=== PATIENT | female | born 1995 | race Caucasian/White ===

== ENCOUNTER 2018-06-14 18:06 | Emergency (ER) | payer OTHER, SELFPAY ==
[2018-06-14] VITALS (26 sets, daily range): BP systolic 146–171; BP diastolic 89–107; PULSE 97–158; RESP 12–28; TEMP 38.2; O2SAT 98–100
--- NOTE | 2018-06-14 18:29 | NUR.NOTE ---
Nursing Note: Pt. denies being anxious currently, staes she had apretty regular day. Is calm in triage. MD Rodriguez is at the bedside currently. Pt. states this started around 1730. Pt. states she recently drove to [place], about a 20mile drive.
--- NOTE | 2018-06-14 18:38 | ERNE_ITS ---
Discharge Plan Discharge Details Chief Complaint: GenMedical Primary Care Provider: Jimbo Costello ED Provider: Tim Rodriguez Home Meds and New Rx's Prescriptions: No Action epinephrine [EpiPen 2-Dennys] 0.3 MG/0.3 ML auto-injector 0.3 mg IM ONCE Qty: 2 RF: 1 Medical Decision Making 22-year-old female with a history of intermittent palpitations in the past, presents with the abrupt onset of rapid heart rate earlier in the day today. She denies any emotional upset. She will endorse recent prolonged travel in a drive to [place] and back for the holidays. She does not of lower extremity pain or swelling. No recent illness. She arrives with a pulse of 150, blood pressure is somewhat elevated, in no significant distress. IV placed, labs obtained, patient placed on cardiac cath lab manager. Differential diagnosis includes pulmonary embolism, benign tachydysrhythmia, dehydration, anxiety. Labs are reassuring with a negative troponin and d-dimer in the 200s. Nonetheless, there is high clinical suspicion for the possibility of PE, therefore patient referred for CT scan of the chest. Case signed out to Dr. Licea at change of shift pending final diagnostic images Lab Data Lab results reviewed: Yes I reviewed the patient's lab results. Laboratory Results - last 24 hr 06/14/18 06/14/18 06/14/18 18:23 18:23 18:23 WBC 7.02 RBC 4.88 Hgb 14.1 Hct 40.7 MCV 83.4 MCH 28.9 MCHC 34.6 RDW 11.7 Plt Count 249 MPV 11.8 H Immature Gran % 0.1 Neutrophils % 49.6 Lymphocytes % 35.9 Monocytes % 8.7 Eosinophils % 5.3 Basophils % 0.4 Absolute Neutrophils 3.48 Absolute Lymphocytes 2.52 Absolute Monocytes 0.61 Absolute Eosinophils 0.37 Absolute Basophils 0.03 D-Dimer 237 Sodium 140 Potassium 3.3 L Chloride 102 Carbon Dioxide 26.8 Anion Gap 11.2 H BUN 9 Creatinine 0.89 Estimated GFR/1.73 m2 >= 60.00 Glucose 132 H Calcium 9.8 Magnesium 2.0 Total Bilirubin 1.2 H AST 16 ALT 24 Alkaline Phosphatase 68 Troponin I 0.02 Total Protein 8.6 H Albumin 4.2 ECG Data Attestation: I personally reviewed and interpreted this ECG (s) as follows: Interpretation: Sinus tachycardia, QRS is narrow, the rate is 155, LA interval is 112, there is no ST segment elevation Repeat EKG obtained at 1928 hrs. reveals narrow complex sinus tachycardia HPI General Mode of arrival: ambulatory . Date/Time Provider Initiated Documentation: 06/14/18 18:08 . Limitations to Documentation: no limitations . Information obtained by: patient and family . History of Present Illness 22 year old F presents to the emergency department with the chief complaint of Rapid heart, Quality is described as constant, and is localized to the chest. Patient reports no radiation. Patient started experiencing this hour(s) and it has been constant. No relieving factors improve symptom(s), No exacerbating factors reported . Patient notes rash. Patient did receive the following treatments prior to arrival, none HPI Narrative: Abrupt onset of rapid heart rate approximately 2 hours prior. Similar to previous but more prolonged. No chest pain. Did recently travel from [place] in a car. Denies leg pain or swelling. 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 Related Data Home Medications Medication Instructions Recorded Confirmed epinephrine [Epipen 2-Dennys] 0.3 mg IM ONCE #2 pack 10/29/17 06/14/18 Previous Rx's Medication Instructions Recorded epinephrine [Epipen 2-Dennys] 0.3 mg IM ONCE #2 pack 10/29/17 Allergies Allergy/AdvReac Type Severity Reaction Status Date / Time tree nut Allergy Severe Anaphylaxsi Unverified 10/29/17 11:23 s birch Allergy Unknown Unverified 10/29/17 11:23 No Known Drug Allergies Allergy Unverified 10/29/17 11:23 General Stated Complaint: GenMedical HAROON: 3 Review of Systems Review of Systems 6 systems reviewed and otherwise negative [facility] Family History Mother Diabetes Mental disorder Father Essential hypertension Diabetes Hyperlipidemia Sister Asthma Brother Mental disorder Asthma Other Essential hypertension Diabetes Personal history of malignant neoplasm Heart disease Myocardial infarction Stroke Social History Smoking/Tobacco Use Status: Never Exam Narrative Exam Narrative: GEN: awake, alert, oriented 3. Pleasant, well groomed, interactive. HEAD: Normocephalic, atraumatic ENT: Mucous membranes moist, oropharynx unremarkable, External ear exam unremarkable EYES: PERRL, EOMI NECK: Full ROM, no DOTTIE, no menigismus CHEST/RESP: Nontender, clear to auscultation bilateral, no wheeze/rhonchi/rales CARDIOVASCULAR: Tachycardic, regular, no murmur appreciated,no rub alberta. 2+ Rad pulse bilateral ABDOMEN: Soft, nontender, no mass. +Bowel sounds EXT: Full ROM, no edema, no rash Neuro: Grossly normal neurologic exam, conversant, interactive. Psych: Speech fluent, thoughts congruent, affect normal Course Vital Signs Pulse 155 H 06/14/18 18:23 Respiratory Rate 18 06/14/18 18:23 Blood Pressure 168/107 H 06/14/18 18:23 Pulse Oximetry 100 06/14/18 18:23 Pulse 155 H 06/14/18 18:23 Respiratory Rate 18 06/14/18 18:23 Respiratory Effort 06/14/18 18:31 Respiratory Depth Normal 06/14/18 18:31 Respiratory Pattern Normal 06/14/18 18:31 Blood Pressure 168/107 H 06/14/18 18:23 Blood Pressure Position Sitting 06/14/18 18:23 Pulse Oximetry 100 06/14/18 18:23 Pain Level 0 06/14/18 18:23
[2018-06-14] MEDS: Normal Saline 1,000 ML 1000 ML IV (18:39)
--- NOTE | 2018-06-14 18:41 | ED.GENADUL_ITS ---
Discharge Plan Discharge Details Chief Complaint: GenMedical Primary Care Provider: Jimbo Costello ED Provider: Tim Rodriguez Home Meds and New Rx's Prescriptions: No Action epinephrine [EpiPen 2-Dennys] 0.3 MG/0.3 ML auto-injector 0.3 mg IM ONCE Qty: 2 RF: 1 Medical Decision Making 22-year-old female with a history of intermittent palpitations in the past, presents with the abrupt onset of rapid heart rate earlier in the day today. She denies any emotional upset. She will endorse recent prolonged travel in a drive to [place] and back for the holidays. She does not of lower extremity pain or swelling. No recent illness. She arrives with a pulse of 150, blood pressure is somewhat elevated, in no significant distress. IV placed, labs obtained, patient placed on conveyor monitor. Differential diagnosis includes pulmonary embolism, benign tachydysrhythmia, dehydration, anxiety. Labs are reassuring with a negative troponin and d-dimer in the 200s. Nonetheless, there is high clinical suspicion for the possibility of PE, therefore patient referred for CT scan of the chest. Case signed out to Dr. Licea at change of shift pending final diagnostic images Lab Data Lab results reviewed: Yes I reviewed the patient's lab results. Laboratory Results - last 24 hr 06/14/18 06/14/18 06/14/18 18:23 18:23 18:23 WBC 7.02 RBC 4.88 Hgb 14.1 Hct 40.7 MCV 83.4 MCH 28.9 MCHC 34.6 RDW 11.7 Plt Count 249 MPV 11.8 H Immature Gran % 0.1 Neutrophils % 49.6 Lymphocytes % 35.9 Monocytes % 8.7 Eosinophils % 5.3 Basophils % 0.4 Absolute Neutrophils 3.48 Absolute Lymphocytes 2.52 Absolute Monocytes 0.61 Absolute Eosinophils 0.37 Absolute Basophils 0.03 D-Dimer 237 Sodium 140 Potassium 3.3 L Chloride 102 Carbon Dioxide 26.8 Anion Gap 11.2 H BUN 9 Creatinine 0.89 Estimated GFR/1.73 m2 >= 60.00 Glucose 132 H Calcium 9.8 Magnesium 2.0 Total Bilirubin 1.2 H AST 16 ALT 24 Alkaline Phosphatase 68 Troponin I 0.02 Total Protein 8.6 H Albumin 4.2 ECG Data Attestation: I personally reviewed and interpreted this ECG (s) as follows: Interpretation: Sinus tachycardia, QRS is narrow, the rate is 155, RI interval is 112, there is no ST segment elevation Repeat EKG obtained at 1928 hrs. reveals narrow complex sinus tachycardia HPI General Mode of arrival: ambulatory . Date/Time Provider Initiated Documentation: 06/14/18 18:08 . Limitations to Documentation: no limitations . Information obtained by: patient and family . History of Present Illness 22 year old F presents to the emergency department with the chief complaint of Rapid heart, Quality is described as constant, and is localized to the chest. Patient reports no radiation. Patient started experiencing this hour(s) and it has been constant. No relieving factors improve symptom(s), No exacerbating factors reported . Patient notes rash. Patient did receive the following treatments prior to arrival, none HPI Narrative: Abrupt onset of rapid heart rate approximately 2 hours prior. Similar to previous but more prolonged. No chest pain. Did recently travel from [place] in a car. Denies leg pain or swelling. 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 Related Data Home Medications Medication Instructions Recorded Confirmed epinephrine [Epipen 2-Dennys] 0.3 mg IM ONCE #2 pack 10/29/17 06/14/18 Previous Rx's Medication Instructions Recorded epinephrine [Epipen 2-Dennys] 0.3 mg IM ONCE #2 pack 10/29/17 Allergies Allergy/AdvReac Type Severity Reaction Status Date / Time tree nut Allergy Severe Anaphylaxsi Unverified 10/29/17 11:23 s birch Allergy Unknown Unverified 10/29/17 11:23 No Known Drug Allergies Allergy Unverified 10/29/17 11:23 General Stated Complaint: GenMedical HAROON: 3 Review of Systems Review of Systems 6 systems reviewed and otherwise negative PENDING SALE TO [facility] Family History Mother Diabetes Mental disorder Father Essential hypertension Diabetes Hyperlipidemia Sister Asthma Brother Mental disorder Asthma Other Essential hypertension Diabetes Personal history of malignant neoplasm Heart disease Myocardial infarction Stroke Social History Smoking/Tobacco Use Status: Never Exam Narrative Exam Narrative: GEN: awake, alert, oriented 3. Pleasant, well groomed, interactive. HEAD: Normocephalic, atraumatic ENT: Mucous membranes moist, oropharynx unremarkable, External ear exam unremarkable EYES: PERRL, EOMI NECK: Full ROM, no DOTTIE, no menigismus CHEST/RESP: Nontender, clear to auscultation bilateral, no wheeze/rhonchi/rales CARDIOVASCULAR: Tachycardic, regular, no murmur appreciated,no rub alberta. 2+ Rad pulse bilateral ABDOMEN: Soft, nontender, no mass. +Bowel sounds EXT: Full ROM, no edema, no rash Neuro: Grossly normal neurologic exam, conversant, interactive. Psych: Speech fluent, thoughts congruent, affect normal Course Vital Signs Pulse 155 H 06/14/18 18:23 Respiratory Rate 18 06/14/18 18:23 Blood Pressure 168/107 H 06/14/18 18:23 Pulse Oximetry 100 06/14/18 18:23 Pulse 155 H 06/14/18 18:23 Respiratory Rate 18 06/14/18 18:23 Respiratory Effort 06/14/18 18:31 Respiratory Depth Normal 06/14/18 18:31 Respiratory Pattern Normal 06/14/18 18:31 Blood Pressure 168/107 H 06/14/18 18:23 Blood Pressure Position Sitting 06/14/18 18:23 Pulse Oximetry 100 06/14/18 18:23 Pain Level 0 06/14/18 18:23
[2018-06-14 18:47] LABS: Abs Immature Grans 0.01 k/cumm (0.0-0.09); Absolute Basophil Count 0.03 k/cumm (0.0-0.2); Absolute Eosinophil Count 0.37 k/cumm (0.0-0.7); Absolute Lymphocyte Count 2.52 k/cumm (1.2-3.4); Absolute Monocyte Count 0.61 k/cumm (0.11-0.7); Absolute Neutrophil Count 3.48 k/cumm (1.2-6.7); Basophils % 0.4; Eosinophils % 5.3; HCT 40.7 % (36.0-46.0); HGB 14.1 g/dL (12.0-15.5); Immature Grans % 0.1; Lymphocytes % 35.9; Mean Corp. HGB Concentration 34.6 g/dL (32.0-36.0); Mean Corpuscular Hemoglobin 28.9 pg (27.0-33.0); Mean Corpuscular Volume 83.4 fL (80-95); Mean Platelet Volume 11.8 fL (8.0-11.0); Monocytes % 8.7; Neutrophils % 49.6; Platelet Count 249 x1000/uL (130-400); RBC 4.88 m/cumm (4.00-5.20); RBC Distribution Width 11.7 % (11.7-14.6); White Blood Cell Count 7.02 k/cumm (4.4-10.8)
[2018-06-14 19:02] LABS: ALT 24 U/L (12-78); AST 16 U/L (15-37); Albumin 4.2 g/dL (3.4-5.0); Alkaline Phosphatase 68 U/L (46-116); Anion Gap 11.2 mmol/L (3-11); BUN 9 mg/dL (7-18); Bilirubin, Total 1.2 mg/dL (0.2-1.0); CO2 26.8 mmol/L (21.0-32.0); CREATININE 0.89 mg/dL (0.55-1.02); Calcium 9.8 mg/dL (8.5-10.1); Chloride 102 mmol/L (98-107); Glucose 132 mg/dL (70-100); Potassium 3.3 mmol/L (3.5-5.1); Sodium 140 mmol/L (136-145); Total Protein 8.6 g/dL (6.4-8.2); Troponin I 0.02 ng/mL (0.00-0.06)
[2018-06-14 19:18] LABS: D-Dimer 237 ng/mlFEU (<500)
--- NOTE | 2018-06-14 19:26 | DI.CT_ITS ---
SYMPTOM/DIAGNOSIS: TACHYCARDIA, RECENT LONG TRAVEL PE CHEST CT: CT angiography was performed with multi slice acquisition and multi planar and 3D reconstruction. There is no evidence of pulmonary emboli or aortic dissection. The heart size is normal. No pleural or pericardial effusions are seen. The lungs appear clear. The visualized portions of the upper abdomen are unremarkable. IMPRESSION: Negative chest CT. No evidence of pulmonary emboli or other acute abnormality.
[2018-06-14 19:55] LABS: TSH 4.26 uIU/mL (0.358-3.74)
[2018-06-14] MEDS: Omnipaque 350 MG/ML 100 ML BTL IV (20:00)
--- NOTE | 2018-06-14 20:14 | DI.VRAD_ITS ---
EXAM: CT Angiography Chest With Contrast EXAM DATE/TIME: 06/14/2018 7:29 PM CLINICAL HISTORY: 22 years old, female; Signs and symptoms; Other: Tachycardia, recent 20 hr travel TECHNIQUE: Axial computed tomographic angiography images of the chest with intravenous contrast using CT angiography protocol. All CT scans at this facility use at least one of these dose optimization techniques: automated exposure control; mA and/or kV adjustment per patient size (includes targeted exams where dose is matched to clinical indication); or iterative reconstruction. Coronal and sagittal reformatted images were created and reviewed. MIP reconstructed images were created and reviewed. CONTRAST: 100 ml of omnipaque 350 administered intravenously. COMPARISON: No relevant prior studies available. FINDINGS: Pulmonary arteries: Normal. No pulmonary emboli. Aorta: Normal. No aortic aneurysm. No aortic dissection. Lungs: Normal. No consolidation. No masses. Pleural space: Normal. No pneumothorax. No pleural effusion. Heart: Normal. No cardiomegaly. No pericardial effusion. Lymph nodes: Unremarkable. No enlarged lymph nodes. Bones/joints: Unremarkable. No acute fracture. Soft tissues: Unremarkable. IMPRESSION: No pulmonary arterial embolism or other acute abnormality. Dictated and Authenticated by: Kirill Schwarz MD. Ordering:JESUS Dumont MD
--- NOTE | 2018-06-14 20:39 | ED.GENADUL_ITS ---
Discharge Plan Disposition Patient Disposition: HOME Condition: Stable Discharge Details Chief Complaint: GenMedical Clinical Impression: Palpitations Primary Care Provider: Jimbo Costello ED Provider: Geoff Licea Home Meds and New Rx's Prescriptions: No Action epinephrine [EpiPen 2-Dennys] 0.3 MG/0.3 ML auto-injector 0.3 mg IM ONCE Qty: 2 RF: 1 Discharge Instructions Instructions: Palpitations (ED) Additional Instructions: Your lab work and cat scan did not show any concerning findings. We are discharging you with a zio patch to evaluate for arrythmias follow up with a primary care provider in 2-3 weeks IF you have worsening symptoms, difficulty breathing or severe pain return to the emergency department Medical Decision Making Pt was signed over to me pending CTA. In brief has had hx of subaortic stenosis not requiring any surgery. She has had periods in the past where she feels anxious, her herat rate gets elevated and gets a mild erythematous rash on her chest. She is on control and recently drove to [place] and back so Dr. Rodriguez did labs which were benign and also obtained CTA to [facility] for PE and signed over to me pending CTA. CTA is negative and she remains hd stable. HR does go to 110 intermittently when she states she feels anxious. Will send home on zio patch, advised f/u with pcp and return precautions given Differential Diagnosis svt, pe, electrolyte abnormality, anxiety Imaging Data Radiologic Study: Attestation: I personally reviewed and interpreted this imaging study as follows: Imaging: CT Scan Radiologist's impression: no acute findings Lab Data Lab results reviewed: Yes I reviewed the patient's lab results. HPI General Mode of arrival: ambulatory . Date/Time Provider Initiated Documentation: 06/14/18 18:08 . Limitations to Documentation: no limitations . Information obtained by: patient . History of Present Illness 22 year old F presents to the emergency department with the chief complaint of rapid heart rate, described as moderate, with intensity rated at 4. Patient reports no radiation. Patient started experiencing this hour(s) (3) and it has been constant. No relieving factors improve symptom(s), No exacerbating factors reported . Patient did receive the following treatments prior to arrival, none Related Data Home Medications Medication Instructions Recorded Confirmed epinephrine [Epipen 2-Dennys] 0.3 mg IM ONCE #2 pack 10/29/17 06/14/18 Previous Rx's Medication Instructions Recorded epinephrine [Epipen 2-Dennys] 0.3 mg IM ONCE #2 pack 10/29/17 Allergies Allergy/AdvReac Type Severity Reaction Status Date / Time tree nut Allergy Severe Anaphylaxsi Unverified 10/29/17 11:23 s birch Allergy Unknown Unverified 10/29/17 11:23 No Known Drug Allergies Allergy Unverified 10/29/17 11:23 General Stated Complaint: GenMedical HAROON: 3 Review of Systems Review of Systems All systems reviewed & are unremarkable except as noted in HPI and below Constitutional Denies chills, Denies fever(s) and Denies weakness Eyes Denies loss of vision ENT Denies change in voice Cardiovascular Denies dyspnea Respiratory Denies dyspnea Gastrointestinal Denies abdominal pain, Denies nausea and Denies vomiting Genitourinary Denies dysuria Musculoskeletal Denies joint swelling Neurologic Denies loss of vision and Denies weakness Psychiatric Denies depression Endocrine Denies cold intolerance and Denies heat intolerance Allergic/Immunologic Denies urticaria PFSH Family History Mother Diabetes Mental disorder Father Essential hypertension Diabetes Hyperlipidemia Sister Asthma Brother Mental disorder Asthma Other Essential hypertension Diabetes Personal history of malignant neoplasm Heart disease Myocardial infarction Stroke Social History Smoking/Tobacco Use Status: Never Exam Const General: no acute distress Orientation: alert HENMT Head: normal to inspection Ears: external ears normal General nose exam: external nose normal Mouth: moist mucous membranes Eyes General: appearance normal, both eyes and all related structures Neck Neck: normal visual inspection Resp Effort & Inspection: normal respiratory effort and able to speak in complete sentences Cardio Jugular venous pressure: no JVD Rhythm: regular rhythm Skin General skin exam: no rashes or lesions noted Neuro General: alert and oriented x3 Extrem General: normal to inspection Psych Mental Status: mental status grossly normal Course Vital Signs Respiratory Rate 20 06/14/18 18:09 Temperature 38.2 C H 06/14/18 19:54 Temperature Source Oral 06/14/18 19:54 Pulse 100 H 06/14/18 19:01 Pulse 104 H 06/14/18 19:01 Respiratory Rate 17 06/14/18 19:01 Respiratory Effort 01/01/19 18:31 Respiratory Depth Normal 06/14/18 18:31 Respiratory Pattern Normal 06/14/18 18:31 Blood Pressure 146/91 H 06/14/18 19:01 Blood Pressure Mean 104 06/14/18 19:01 Blood Pressure Position Sitting 06/14/18 18:23 Pulse Oximetry 100 06/14/18 19:01 Pain Level 0 06/14/18 18:23 Lab/Test Results Lab/Test Results: Laboratory Tests Range/Units 06/14/18 06/14/18 06/14/18 18:23 18:23 18:23 WBC (4.4-10.8) k/cumm 7.02 RBC (4.00-5.20) m/cumm 4.88 Hgb (12.0-15.5) g/dL 14.1 Hct (36.0-46.0) % 40.7 MCV (80-95) fL 83.4 MCH (27.0-33.0) pg 28.9 MCHC (32.0-36.0) g/dL 34.6 RDW (11.7-14.6) % 11.7 Plt Count (130-400) x1000/uL 249 MPV (8.0-11.0) fL 11.8 H Immature Gran % 0.1 Neutrophils % 49.6 Lymphocytes % 35.9 Monocytes % 8.7 Eosinophils % 5.3 Basophils % 0.4 Absolute Neutrophils (1.2-6.7) k/cumm 3.48 Absolute Lymphocytes (1.2-3.4) k/cumm 2.52 Absolute Monocytes (0.11-0.7) k/cumm 0.61 Absolute Eosinophils (0.0-0.7) k/cumm 0.37 Absolute Basophils (0.0-0.2) k/cumm 0.03 D-Dimer (<500) ng/mlFEU 237 Sodium (136-145) mmol/L 140 Potassium (3.5-5.1) mmol/L 3.3 L Chloride (98-107) mmol/L 102 Carbon Dioxide (21.0-32.0) mmol/L 26.8 Anion Gap (3-11) mmol/L 11.2 H BUN (7-18) mg/dL 9 Creatinine (0.55-1.02) mg/dL 0.89 Estimated GFR/1.73 m2 (mL/min/1.73m2) >= 60.00 Glucose (70-100) mg/dL 132 H Calcium (8.5-10.1) mg/dL 9.8 Magnesium (1.8-2.4) mg/dL 2.0 Total Bilirubin (0.2-1.0) mg/dL 1.2 H AST (15-37) U/L 16 ALT (12-78) U/L 24 Alkaline Phosphatase (46-116) U/L 68 Troponin I (0.00-0.06) ng/mL 0.02 Total Protein (6.4-8.2) g/dL 8.6 H Albumin (3.4-5.0) g/dL 4.2 TSH (0.358-3.74) uIU/mL Range/Units 06/14/18 18:23 WBC (4.4-10.8) k/cumm RBC (4.00-5.20) m/cumm Hgb (12.0-15.5) g/dL Hct (36.0-46.0) % MCV (80-95) fL MCH (27.0-33.0) pg MCHC (32.0-36.0) g/dL RDW (11.7-14.6) % Plt Count (130-400) x1000/uL MPV (8.0-11.0) fL Immature Gran % Neutrophils % Lymphocytes % Monocytes % Eosinophils % Basophils % Absolute Neutrophils (1.2-6.7) k/cumm Absolute Lymphocytes (1.2-3.4) k/cumm Absolute Monocytes (0.11-0.7) k/cumm Absolute Eosinophils (0.0-0.7) k/cumm Absolute Basophils (0.0-0.2) k/cumm D-Dimer (<500) ng/mlFEU Sodium (136-145) mmol/L Potassium (3.5-5.1) mmol/L Chloride (98-107) mmol/L Carbon Dioxide (21.0-32.0) mmol/L Anion Gap (3-11) mmol/L BUN (7-18) mg/dL Creatinine (0.55-1.02) mg/dL Estimated GFR/1.73 m2 (mL/min/1.73m2) Glucose (70-100) mg/dL Calcium (8.5-10.1) mg/dL Magnesium (1.8-2.4) mg/dL Total Bilirubin (0.2-1.0) mg/dL AST (15-37) U/L ALT (12-78) U/L Alkaline Phosphatase (46-116) U/L Troponin I (0.00-0.06) ng/mL Total Protein (6.4-8.2) g/dL Albumin (3.4-5.0) g/dL TSH (0.358-3.74) uIU/mL 4.26 H Sign Out Sign Out Data: Sign Out Comment: Followup CT pe Last updated by Tim Rodriguez MD at 06/14/18 19:52
--- NOTE | 2018-06-15 09:10 | ED.GENADUL_ITS ---
Discharge Plan Disposition Patient Disposition: HOME Condition: Stable Discharge Details Chief Complaint: GenMedical Clinical Impression: Palpitations Primary Care Provider: Jimbo Costello ED Provider: Geoff Licea Home Meds and New Rx's Prescriptions: No Action epinephrine [EpiPen 2-Dennys] 0.3 MG/0.3 ML auto-injector 0.3 mg IM ONCE Qty: 2 RF: 1 Discharge Instructions Instructions: Palpitations (ED) Additional Instructions: Your lab work and cat scan did not show any concerning findings. We are discharging you with a zio patch to evaluate for arrythmias follow up with a primary care provider in 2-3 weeks IF you have worsening symptoms, difficulty breathing or severe pain return to the emergency department Discharge Data Discharge Date/Time-TO BE ENTERED AT DEPARTURE: 06/14/18 21:52 Medical Decision Making Due to air of medical record, please see scanned note from this visit date as well as Dr. Licea's follow-up note from same visit HPI General Mode of arrival: ambulatory . Date/Time Provider Initiated Documentation: 06/14/18 18:08 . Limitations to Documentation: no limitations . Information obtained by: patient . History of Present Illness with intensity rated at 4. No relieving factors improve symptom(s), No exacerbating factors reported . Patient did receive the following treatments prior to arrival, none Related Data Home Medications Medication Instructions Recorded Confirmed epinephrine [Epipen 2-Dennys] 0.3 mg IM ONCE #2 pack 10/29/17 06/14/18 Previous Rx's Medication Instructions Recorded epinephrine [Epipen 2-Dennys] 0.3 mg IM ONCE #2 pack 10/29/17 Allergies Allergy/AdvReac Type Severity Reaction Status Date / Time tree nut Allergy Severe Anaphylaxsi Unverified 10/29/17 11:23 s birch Allergy Unknown Unverified 10/29/17 11:23 No Known Drug Allergies Allergy Unverified 10/29/17 11:23 General Stated Complaint: GenMedical HAROON: 3 PFSH Family History Mother Diabetes Mental disorder Father Essential hypertension Diabetes Hyperlipidemia Sister Asthma Brother Mental disorder Asthma Other Essential hypertension Diabetes Personal history of malignant neoplasm Heart disease Myocardial infarction Stroke Social History Smoking/Tobacco Use Status: Never Course Vital Signs Respiratory Rate 20 06/14/18 18:09 Temperature 38.2 C H 06/14/18 19:54 Temperature Source Oral 06/14/18 19:54 Pulse 112 H 06/14/18 20:06 Pulse 108 H 06/14/18 20:10 Respiratory Rate 15 06/14/18 20:10 Respiratory Effort 06/14/18 18:31 Respiratory Depth Normal 06/14/18 18:31 Respiratory Pattern Normal 06/14/18 18:31 Blood Pressure 154/91 H 06/14/18 20:06 Blood Pressure Mean 104 06/14/18 20:06 Blood Pressure Position Sitting 06/14/18 18:23 Pulse Oximetry 99 06/14/18 20:10 Pain Level 0 06/14/18 18:23 Lab/Test Results Lab/Test Results: Laboratory Tests Range/Units 06/14/18 06/14/18 06/14/18 18:23 18:23 18:23 WBC (4.4-10.8) k/cumm 7.02 RBC (4.00-5.20) m/cumm 4.88 Hgb (12.0-15.5) g/dL 14.1 Hct (36.0-46.0) % 40.7 MCV (80-95) fL 83.4 MCH (27.0-33.0) pg 28.9 MCHC (32.0-36.0) g/dL 34.6 RDW (11.7-14.6) % 11.7 Plt Count (130-400) x1000/uL 249 MPV (8.0-11.0) fL 11.8 H Immature Gran % 0.1 Neutrophils % 49.6 Lymphocytes % 35.9 Monocytes % 8.7 Eosinophils % 5.3 Basophils % 0.4 Absolute Neutrophils (1.2-6.7) k/cumm 3.48 Absolute Lymphocytes (1.2-3.4) k/cumm 2.52 Absolute Monocytes (0.11-0.7) k/cumm 0.61 Absolute Eosinophils (0.0-0.7) k/cumm 0.37 Absolute Basophils (0.0-0.2) k/cumm 0.03 D-Dimer (<500) ng/mlFEU 237 Sodium (136-145) mmol/L 140 Potassium (3.5-5.1) mmol/L 3.3 L Chloride (98-107) mmol/L 102 Carbon Dioxide (21.0-32.0) mmol/L 26.8 Anion Gap (3-11) mmol/L 11.2 H BUN (7-18) mg/dL 9 Creatinine (0.55-1.02) mg/dL 0.89 Estimated GFR/1.73 m2 (mL/min/1.73m2) >= 60.00 Glucose (70-100) mg/dL 132 H Calcium (8.5-10.1) mg/dL 9.8 Magnesium (1.8-2.4) mg/dL 2.0 Total Bilirubin (0.2-1.0) mg/dL 1.2 H AST (15-37) U/L 16 ALT (12-78) U/L 24 Alkaline Phosphatase (46-116) U/L 68 Troponin I (0.00-0.06) ng/mL 0.02 Total Protein (6.4-8.2) g/dL 8.6 H Albumin (3.4-5.0) g/dL 4.2 TSH (0.358-3.74) uIU/mL Range/Units 06/14/18 18:23 WBC (4.4-10.8) k/cumm RBC (4.00-5.20) m/cumm Hgb (12.0-15.5) g/dL Hct (36.0-46.0) % MCV (80-95) fL MCH (27.0-33.0) pg MCHC (32.0-36.0) g/dL RDW (11.7-14.6) % Plt Count (130-400) x1000/uL MPV (8.0-11.0) fL Immature Gran % Neutrophils % Lymphocytes % Monocytes % Eosinophils % Basophils % Absolute Neutrophils (1.2-6.7) k/cumm Absolute Lymphocytes (1.2-3.4) k/cumm Absolute Monocytes (0.11-0.7) k/cumm Absolute Eosinophils (0.0-0.7) k/cumm Absolute Basophils (0.0-0.2) k/cumm D-Dimer (<500) ng/mlFEU Sodium (136-145) mmol/L Potassium (3.5-5.1) mmol/L Chloride (98-107) mmol/L Carbon Dioxide (21.0-32.0) mmol/L Anion Gap (3-11) mmol/L BUN (7-18) mg/dL Creatinine (0.55-1.02) mg/dL Estimated GFR/1.73 m2 (mL/min/1.73m2) Glucose (70-100) mg/dL Calcium (8.5-10.1) mg/dL Magnesium (1.8-2.4) mg/dL Total Bilirubin (0.2-1.0) mg/dL AST (15-37) U/L ALT (12-78) U/L Alkaline Phosphatase (46-116) U/L Troponin I (0.00-0.06) ng/mL Total Protein (6.4-8.2) g/dL Albumin (3.4-5.0) g/dL TSH (0.358-3.74) uIU/mL 4.26 H Sign Out Sign Out Data: Sign Out Comment: Followup CT pe Last updated by iTm Rodriguez MD at 06/14/18 19:52
--- NOTE | 2018-07-25 07:33 | ZIOP_ITS ---
ZIO PATCH EVENT RECORDER REPORT DATE OF DICTATION July 23, 2018 INDICATION Palpitations. PRESCRIBING CLINICIAN Jimbo Costello M.D. ENROLLMENT 06/14/2018 until 06/24/2018 FINDINGS 1. Baseline sinus rhythm, 45-187 beats per minute, average 79 beats per minute. 2. No supraventricular ectopy, no AF. 3. Rare single PVC, less than 1%, No VT. 4. No pauses. 5. 14 trigger events: all sinus rhythm/sinus tachycardia, 77 - 126 beats per minute, 1 episode with single PVC. 6. SYMPTOMS: flushed cheeks and rash, short of breath, pounding, lightheaded, chest pain/pressure, anxious, headache, pain/tingling in neck or arm, in various combinations x5, all episodes with sinus rhythm/sinus tachycardia 80 - 124 beats per minute. Isabelle Marvin M.D. ALEJANDRO/guy T - 07/25/2018
== END 2018-06-14 21:52 | disposition home or self-care (01) ==
PROVIDERS: Emergency Medicine; Emergency Provider Emergency Medicine; PCP Pediatrics
DX: R00.2 Palpitations (principal)
CPT/HCPCS: 36415; 71275; 80053; 81025; 93005; 93225; 96361; 99285; 83735; 84443; 84484; 85025; 85379; 93010; 99284; J3490

== ENCOUNTER 2021-12-23 18:01 | Outpatient (REF) | payer OTHER, SELFPAY | END 2021-12-23 18:02 | disposition home or self-care (01) | LOC: LBN 18:01 | PROVIDERS: Visit Provider Family Medicine | DX: R39.89 Other symptoms and signs involving the genitourinary system (principal) | CPT/HCPCS: 87077; 87086; 87186 ==